=== PATIENT | female | born 1965 | race Caucasian/White ===

== ENCOUNTER 2017-05-09 07:59 | Outpatient (RCR) | payer BC ==
[~2017-05-09 07:59] MED LIST: DCS100C PO; HYDR-3720 PO; IBP800T PO; sprintec
== END 2017-05-09 12:02 | disposition home or self-care (01) ==
PROVIDERS: ATTEND Orthopaedic Surgery
DX: M75.01 Adhesive capsulitis of right shoulder (principal)

== ENCOUNTER → 2018-07-24 | Outpatient (CLI) | payer BC ==
--- NOTE | 2018-07-24 14:40 | Diagnostic Imaging Report ---
INDICATION: Routine screening. COMPARISON: 07/26/2016 and 03/11/2015. TECHNIQUE: 2D and 3D bilateral screening mammography was performed with CAD. FINDINGS: Scattered fibroglandular densities are identified bilaterally. No mass or malignant appearing microcalcifications are seen. The axillae are unremarkable. IMPRESSION: No mammographic features suspicious for malignancy are identified. ACR BI-RADS Category 1: Negative. Result letter will be mailed to the patient. Note: At least 10% of breast cancer is not imaged by mammography. Dictated by: Dictated on workstation # [id number]
== END ==
LOC: RAD 08:12
PROVIDERS: ATTEND Obstetrics & Gynecology
DX: Z12.31 Encounter for screening mammogram for malignant neoplasm of breast (principal)
CPT/HCPCS: 77067

== ENCOUNTER 2019-02-07 08:03 | Outpatient (RCR) | payer BC | END 2019-02-07 08:36 | disposition home or self-care (01) | DX: M75.02 Adhesive capsulitis of left shoulder (principal) ==

== ENCOUNTER → 2020-02-25 | Outpatient (CLI) | payer BC ==
[~2020-02-25] MED LIST changes: +ESTR1TAB24 PO; +PHEN-483 PO
--- NOTE | 2020-02-25 21:32 | Diagnostic Imaging Report ---
Indication: Routine screening. Comparison is made with prior mammograms from 07/24/2018 and 07/26/2016. 2-D and 3-D bilateral screening mammography was performed with CAD. Scattered fibroglandular densities are identified bilaterally. The parenchymal pattern is stable. No mass or malignant appearing microcalcifications are identified. Axillae are unremarkable. IMPRESSION: BI-RADS Category 1 No mammographic features suspicious for malignancy are identified. ACR BI-RADS Category 1: Negative. Result letter will be mailed to the patient. Note: At least 10% of breast cancer is not imaged by mammography. Dictated by: Dictated on workstation # [id number]
== END ==
LOC: RAD 14:58
PROVIDERS: ATTEND Obstetrics & Gynecology
DX: Z12.31 Encounter for screening mammogram for malignant neoplasm of breast (principal)
CPT/HCPCS: 77063; 77067

== ENCOUNTER 2020-02-27 05:43 | Outpatient (RCR) | payer BC ==
[~2020-02-27] VITALS: Ht 165 cm; Wt 80.4 kg
[~2020-02-27 05:43] MED LIST changes: -ESTR1TAB24 PO; -PHEN-483 PO
[2020-02-27] MEDS ORDERED: PHEN-483 PO (11:08)
[2020-02-27] MEDS ORDERED: ESTR1TAB24 PO (11:08)
== END 2020-02-27 11:55 | disposition home or self-care (01) ==
LOC: PREOP 05:43 → EDSTATUS 09:15 → PREOP 11:55
PROVIDERS: ATTEND Internal Medicine
DX: Z01.818 Encounter for other preprocedural examination (principal)

== ENCOUNTER → 2021-11-08 | Outpatient (RCR) | payer BC ==
[~2021-11-08] MED LIST changes: +ESTR1TAB24 PO; +PHEN-483 PO
== END | disposition home or self-care (01) ==
PROVIDERS: ATTEND Nurse Practitioner Family
DX: Z98.890 Other specified postprocedural states (principal); Z96.611 Presence of right artificial shoulder joint

== ENCOUNTER 2021-11-26 13:00 | Outpatient (RCR) | payer BC | END 2021-12-06 | disposition home or self-care (01) | PROVIDERS: ATTEND Nurse Practitioner Family | DX: M75.22 Bicipital tendinitis, left shoulder (principal); M75.21 Bicipital tendinitis, right shoulder; Z98.890 Other specified postprocedural states; Z96.611 Presence of right artificial shoulder joint ==

== ENCOUNTER → 2021-12-30 | Outpatient (CLI) | payer BC ==
--- NOTE | 2021-12-31 09:31 | Diagnostic Imaging Report ---
INDICATION: Routine screening. COMPARISON: 02/25/2020 and 07/24/2018. TECHNIQUE: 2D and 3D bilateral screening mammography was performed with CAD. FINDINGS: Scattered fibroglandular densities are identified bilaterally. The parenchymal pattern is stable. No mass is identified. There are no malignant-appearing microcalcifications. There are benign calcifications present. The axillae are unremarkable. IMPRESSION: No mammographic features suspicious for malignancy are identified. ACR BI-RADS Category 2: Benign findings. Result letter will be mailed to the patient. Note: At least 10% of breast cancer is not imaged by mammography. Dictated by: Dictated on workstation # [id number]
== END ==
LOC: RAD 15:15
PROVIDERS: ATTEND Family Medicine
DX: Z12.31 Encounter for screening mammogram for malignant neoplasm of breast (principal)
CPT/HCPCS: 77063; 77067